=== PATIENT | female | born 1980 | race Caucasian/White ===

== ENCOUNTER → 2018-08-21 | Outpatient (CLI) | payer BC ==
[2015-03-31 11:16] VITALS: BMI 33.1
[~2018-08-21] MED LIST: AMO875 PO; FERR-103 PO; GADOBENATE 529MG/1ML 15ML VIAL IVP ONE; IBU800 PO; IBUP800T37 PO; NO MEDS; OXYC-373 PO; PER PO; PNV11TAB
--- NOTE | 2018-08-21 12:48 | RADIOLOGY IMAGING REPORT ---
FACILITY: [facility] - [place] PATIENT NAME: Margarita Grijalva : 1980 MR: [id number] V: [id number] EXAM DATE: ORDERING PHYSICIAN: LELAND COSME TECHNOLOGIST: Location: [facility] [place] Patient: Margarita Grijalva : 1980 Visit/Account:[id number] Date of Sevice: 08/21/2018 Examination: MR brain without and with contrast History: Numbness and tingling Comparison: None Technique: Multiplane MR imaging was performed through the brain without and with contrast. 14 cc IV multihance was administered. Findings: Diffusion: None Ventricles: Normal Midline shift: None Extraxial fluid: None Midline craniocervical structures: Normal Parenchyma: Less than 15 punctate white matter high signal foci deep and juxtacortical white matter b est visualized on sagittal FLAIR. Enhancement: No pathologic enhancement Vascular flow voids: Normal Orbits and paranasal sinuses: Normal Impression: 1. No acute intracranial abnormality. 2. Less than 15 nonspecific punctate white matter high signal foci in the deep and juxtacortical whit e matter in keeping with residua of prior microischemia or inflammation. Such findings can be seen in setting of migraine disorders as well. These do not have the characteristic distribution often seen with MS. 3. Otherwise normal brain MR without and with contrast. Report Dictated By: Kory Carroll MD at 08/21/2018 12:30 PM Report E-Signed By: Kory Carroll MD at 08/21/2018 12:43 PM WSN:[id number]
== END ==
LOC: MRI 00:35
PROVIDERS: ATTEND Physician Assistant Medical
DX: R90.82 White matter disease, unspecified (principal)
CPT/HCPCS: 70553; A9577

== ENCOUNTER 2018-08-27 01:09 | Outpatient (RCR) | payer BC ==
[2015-03-31 11:16] VITALS: BMI 33.1
[~2018-08-27 01:09] MED LIST changes: -GADOBENATE 529MG/1ML 15ML VIAL IVP ONE
[2018-08-27] MEDS ORDERED: GADOBENATE 529MG/1ML 15ML VIAL IVP ONE (09:28)
--- NOTE | 2018-08-27 11:50 | RADIOLOGY IMAGING REPORT ---
FACILITY: [facility] - [place] PATIENT NAME: Margarita Grijalva : 1980 MR: [id number] V: [id number] EXAM DATE: [id number] ORDERING PHYSICIAN: LELAND COSME TECHNOLOGIST: Location: [facility] Patient: Margarita Grijalva : 1980 Visit/Account:[id number] Date of Sevice: 08/27/2018 EXAMINATION: MRI Cervical spine without and with intravenous contrast HISTORY: White matter lesions in the brain. COMPARISON: Brain MRI dated 08/21/2018. TECHNIQUE: Multi-planar, multi-sequence cervical spine MRI was performed before and after IV contras t. CONTRAST: 14 mL of IV MultiHance FINDINGS: Mild motion artifact. Alignment: Normal. Vertebral marrow signal: Negative. Cranio-cervical junction: Negative. Visualized posterior fossa: Negative. Soft tissues: Negative. Cervical cord: Negative. Enhancement pattern: Negative. Disc Spaces: C1-2: Negative. C2-3: Negative. C3-4: Negative. C4-5: Negative. C5-6: Negative. C6-7: Negative. C7-T1: Negative. Upper thoracic spine: Negative. IMPRESSION: 1. Mild motion artifact. No definite lesions in the cervical spinal cord. 2. No significant degenerative changes in the cervical spine. Report Dictated By: Umer Rodriguez MD at 08/27/2018 11:40 AM Report E-Signed By: Umer Rodriguez MD at 08/27/2018 11:45 AM WSN:[email or web address]
== END 2018-08-27 18:00 | disposition home or self-care (01) ==
LOC: MRI 01:09
PROVIDERS: ATTEND Physician Assistant Medical
DX: G37.9 Demyelinating disease of central nervous system, unspecified (principal); R20.0 Anesthesia of skin; R20.2 Paresthesia of skin
CPT/HCPCS: 72156; A9577

== ENCOUNTER → 2019-04-10 | Outpatient (CLI) | payer BC ==
[2015-03-31 11:16] VITALS: BMI 33.1
== END ==
LOC: LAB 08:17
PROVIDERS: ATTEND Internal Medicine
DX: R76.8 Other specified abnormal immunological findings in serum (principal)
CPT/HCPCS: 81001